=== PATIENT | male | born 1965 | race Caucasian/White ===

== ENCOUNTER → 2018-05-29 | Outpatient (CLI) | payer OTHER ==
[~2018-05-29] MED LIST: MOBIC15 MG PO; NORVASC5 MG PO; OMEPRAZOLE20 M2 PO
--- NOTE | ~2018-05-29 | PAINCON ---
[address] [address] PAIN MANAGEMENT CONSULTATION Name: EDGARDO MARTINEZ [id number] Admission: 05/29/18 Attend Phys: Jimmie Rodriguez MD Discharge: Date of : 63 Report #: [id number] THIS REPORT FOR: //name// CC: Pedro Rodriguez DATE OF SERVICE: 05/29/2018 PRIMARY CARE PHYSICIAN: Pedro Saab MD CHIEF COMPLAINT: Low back pain in the L5-S1 area. HISTORY OF PRESENT ILLNESS: The patient is a 53-year-old gentleman who has been referred to the pain clinic for evaluation. The patient states that he has a history of spinal stenosis. He is having pain in the L5-S1 area. Notes that it radiates down into his left leg. Occasionally, involves the right leg. He feels as though he has a bone spur because of the sciatic irritation. He has undergone physical therapy. Notes that his pain worsened about 2017. He has tried meloxicam [id number] medications and has used OxyContin. Notes that he has had some pain in his right knee as well. He is quite active. Describes the pain radiating down into his left leg as causing numbness, sharp, tingling sensation into his left foot. Notes that the pain is improved when he is lying down or sleeping. Denies any bowel or bladder dysfunction. Describes it as steady, burning, shooting, aching and sharp. Rates it as a 5-7/10. He has been using meloxicam and feels that this medication does offer some benefit. ALLERGIES: No known drug allergies. CURRENT MEDICATIONS: Norvasc 5 mg, meloxicam 15 mg, and omeprazole 20 mg. PAST MEDICAL HISTORY: Sleep apnea, lumbar radiculopathy, degenerative disk disease, hypertension, anxiety, hypercholesterolemia, hypertriglyceridemia, and ulcers. PAST SURGICAL HISTORY: The patient has not had surgery. 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 He is working at this juncture. REVIEW OF SYSTEMS: Generally good health, fatigue and weakness, wears glasses, history of peptic ulcer, joint pain, muscle cramps, back pain, difficulty walking, numbness and tingling sensation, insomnia, somewhat. LABORATORY DATA: MRI of the lumbar spine dated 05/07/2018, L3-L4, mild annular bulge with small posterior disk protrusion. Mild facet arthrosis. L4-L[place] [address] PAIN MANAGEMENT CONSULTATION Name: EDGARDO MARTINEZ Room: [facility]#: [id number] Admission: 05/29/18 Attend Phys: Jimmie Rodriguez MD Discharge: Date of : 63 Report #: [id number] annular bulge with mild facet arthrosis. L5-S1 mild disk osteophyte bulge and mild foraminal stenosis. PAIN CLINIC ASSESSMENT/PQRS: 1. The patient is not being treated for osteoarthritis or rheumatoid arthritis. 2. Height 6 feet 2 inches, weight 216 pounds, BMI is 27.8. 3. Vital signs: Blood pressure 142/96, heart rate 78, respiratory rate 16, room air saturation 97%, temperature 98.0. 4. Pain intensity 5-6/10. 5. Fall risk. The patient has not fallen in the last 3 months. 6. Blood thinner. The patient is not on a blood thinning medication. 7. Hypertension. The patient is being treated for hypertension. 8. Blood thinner. The patient is not on a blood thinning medication. 9. Opioids greater than 6 weeks. The patient is not on opioid regimen. 10. Risk assessment tool, low for opioid use. 11. Functional assessment tool . 12. Recreational drug use. The patient denies use of recreational drugs. 13. Tobacco: The patient denies use of tobacco. 14. Alcohol: The patient denies frequent use of alcoholic beverages. PHYSICAL EXAMINATION: GENERAL: The patient is a well-developed, well-nourished white male. Appears his stated age. He is alert and oriented x 3. His affect is appropriate. Speech is fluent. HEENT: Normocephalic, atraumatic. Extraocular eye muscles intact. The patient is wearing glasses. NECK: Without adenopathy or JVD. Upper extremity muscle strength is judged to be 5/5 for the major muscle groups in the upper extremity. HEART: Regular rate. S1, S2. ABDOMEN: Nontender. Bowel sounds present. EXTREMITIES: Lower extremity muscle strength is judged to be 5-/5 for the major muscle groups in the lower extremity. Deep tendon reflexes are +1 at the knees bilaterally. It is difficult to appreciate at the ankles. Anterior, posterior spring tests are negative. Zachary sign is negative. Straight leg raise, left leg is positive. Forward bending cause some increased pain in the low back area and into the posterior left leg. IMPRESSION: Left sciatic nerve irritation, L5-S1. RECOMMENDATIONS: We discussed treatment options with the patient. A model was used to indicate the area of probable pathology. The patient's MRI was reviewed with him in great detail. He states that he understands. He will return to the pain clinic at which time he will then undergo an epidural steroid injection. The possible complications, which could include but are not limited to infection, worsening pain, no improvement in pain, bleeding, headache, nerve damage were discussed. He will undergo an epidural steroid injection to help [facility] [address] [place] [address] PAIN MANAGEMENT CONSULTATION Name: EDGARDO MARTINEZ Dominique Room: [facility]#: [id number] Admission: 05/29/18 Attend Phys: Jimmie Rodriguez MD Discharge: Date of : 63 Report #: [id number] decrease the nerve root irritation in the L5-S1 dermatomal distribution. We would like to thank you for letting us participate in his care. We hope he continues to improve. By: [id number]. Terry Rodriguez MD /HO
== END ==
LOC: M.PC 12:50
DX: G57.02 Lesion of sciatic nerve, left lower limb (principal)

== ENCOUNTER → 2018-06-07 | Outpatient (CLI) | payer OTHER ==
--- NOTE | ~2018-06-07 | PAINCON ---
[address] [address] PAIN MANAGEMENT CONSULTATION Name: MICHELLEEDGARDO Dominique Room: [facility]#: [id number] Admission: 06/07/18 Attend Phys: Jimmie Rodriguez MD Discharge: Date of : 63 Report #: [id number] THIS REPORT FOR: //name// CC: Pedro Rodriguez DATE OF SERVICE: 06/07/2018 CHIEF COMPLAINT: Here for an epidural steroid injection. HISTORY: The patient is a 53-year-old gentleman who has been seen in the pain clinic because of pain involving his low back. He is experiencing pain that is radiating down the L5-S1 level. He has had some pain and discomfort for a number of years. Rates his pain as a 6/10 today. Notes that the pain is constant with some numbness, tingling and pain that is radiating down into the right foot as well as the left leg. He has a history of spinal stenosis. He has returned for treatment. Continues to use meloxicam 15 mg daily. ALLERGIES: No known drug allergies. MEDICATIONS: Norvasc 5 mg, meloxicam 15 mg, and omeprazole 20 mg. PAIN CLINIC ASSESSMENT AND PQRS: 1. The patient is not being treated for osteoarthritis or rheumatoid arthritis. 2. Height 6 feet 2 inches, weight 212 pounds, BMI is 26. 3. Vital signs: Blood pressure 146/100, heart rate 71, respiratory rate 16, room air saturation 97%, and temperature 98.3. 4. Pain intensity 10. 5. Fall risk. The patient has not fallen in the last 3 months. 6. Hypertension. The patient is being treated for hypertension. 7. Blood thinner. The patient is not on a blood thinning medication. 8. Opioid greater than 6 weeks. The patient is not on an opioid regimen. 9. Risk assessment tool, low for opioid use. 10. Functional assessment tool of . 11. Recreational drug use. The patient denies use of recreational drugs. 12. Tobacco: The patient denies use of tobacco. 13. Alcohol: The patient denies frequent use of alcoholic beverages. PHYSICAL EXAMINATION: GENERAL: The patient is a well-developed, well-nourished white male. Appears his stated age. He is alert and oriented x 3. His affect is appropriate. Speech is fluent. HEENT: Normocephalic, atraumatic. Extraocular eye muscles intact. Sclerae nonicteric. NECK: Without adenopathy or JVD. Upper extremity muscle strength is judged to be 5/5 for the major muscle groups in [place] [address] PAIN MANAGEMENT CONSULTATION Name: MICHELLEEDGARDO T Room: [facility]#: [id number] Admission: 06/07/18 Attend Phys: Jimmie Rodriguez MD Discharge: Date of : 63 Report #: [id number] HEART: Regular rate. S1, S2. ABDOMEN: Nontender. Bowel sounds present. EXTREMITIES: Lower extremity muscle strength judged to be 5-/5 for the major muscle groups in the lower extremity. Deep tendon reflexes +2 at the knees bilaterally. The patient has positive straight leg raise on the left. Forward bending caused increased pain in low back area with pain radiating down to the left leg. IMPRESSION: 1. Left sciatic nerve root irritation. 2. Hypertension. 3. Sleep apnea. 4. Anxiety. 5. Hypercholesterolemia. 6. Hypertriglyceridemia. 7. History of ulcers. RECOMMENDATIONS: We discussed treatment options with the patient. Risks and benefits of an epidural steroid injection were again discussed. Possible complications of the procedure, which could include but are not limited to infection, worsening pain, no improvement in pain, nerve damage, spinal headache, trauma to the spinal cord were discussed. The patient elects to proceed. PROCEDURE NOTE: The patient was taken to the procedure area. He was assisted in getting on the examination table. His back was sterilely prepped with a Betadine solution at the L5-S1 area. The L5-S1 area was visualized using anterior, posterior as well as lateral viewing with fluoroscopy. The left paramedian approach was used. A 25-gauge needle was then advanced to the area. A 0.25% bupivacaine was used to anesthetize it. A 17-gauge Tuohy at the L5-S1 area using the left paramedian approach was undertaken. Aspiration was negative. A total of 80 mg Depo-Medrol, 40 mg triamcinolone and 2 mL of 0.25% bupivacaine was injected. The patient tolerated the procedure well. A total of 13 seconds fluoro time was used. The patient remained in the pain clinic for an appropriate amount of time. He will follow up in the future as needed. We would like to thank you for letting us participate in his care. We hope he continues to improve. By: [id number]. Terry Rodriguez MD /chip
== END | disposition home or self-care (01) ==
LOC: M.PC 00:44
DX: M54.16 Radiculopathy, lumbar region (principal); G89.29 Other chronic pain; I10 Essential (primary) hypertension; G47.33 Obstructive sleep apnea (adult) (pediatric); F41.9 Anxiety disorder, unspecified; E78.00 Pure hypercholesterolemia, unspecified; Z87.19 Personal history of other diseases of the digestive system; E78.1 Pure hyperglyceridemia; Z79.899 Other long term (current) drug therapy; Z98.890 Other specified postprocedural states

== ENCOUNTER 2018-08-31 19:46 | Emergency (ER) | payer OTHER ==
[~2018-08-31] VITALS: Ht 190.5 cm; Wt 93.0 kg
[2018-08-31 20:11] LABS: ABSOLUTE BASOPHILS 0.1 thou/uL (0.0-0.2); ABSOLUTE MONOCYTES 0.6 thou/uL (0.0-1.2); ABSOLUTE NEUTROPHILS 3.5 thou/uL (1.6-8.1); BASOPHILS 0.9 %; EOSINOPHILS 0.5 %; HEMOGLOBIN 15.9 gm/dL (14.0-18.0); MCH 33.4 pg (26.0-34.0); MCHC 34.5 g/dL (28.0-37.0); MCV 96.8 fL (80.0-100.0); MONOCYTES 7.8 %; MPV 6.2 fl. (7.2-11.1); NUCLEATED RBCS 0 /100WBC; PLATELET COUNT* 250 thou/uL (150-400); POLYS 48.8 %; RBC 4.76 mil/uL (4.50-6.00); RDW-CV 14.1 % (10.5-14.5); WBC 7.2 thou/uL (4.0-11.0)
[2018-08-31 20:18] LABS: ANION GAP 11 mmol/L (7-16); BUN 9 mg/dL (7-18); CALCIUM 9.7 mg/dL (8.5-10.1); CHLORIDE 108 mmol/L (98-107); CO2 26 mmol/L (21-32); CREATININE 1.1 mg/dL (0.6-1.3); GLUCOSE 117 mg/dL (70-99); POTASSIUM 4.1 mmol/L (3.5-5.1); SODIUM 145 mmol/L (136-145)
[2018-08-31 20:20] LABS: PROTIME 9.8 Seconds (9.20-11.50)
[2018-08-31 20:33] LABS: ALKALINE PHOSPHATASE 97 U/L (46-116); CK-MB MASS 1.5 ng/mL (<0.5-3.6); LIPASE 166 U/L (73-393); MAGNESIUM 2.1 mg/dL (1.8-2.4); NT-PRO BRAIN NAT PEPTIDE 39 pg/mL (<300); SGOT 100 U/L (15-37); SGPT 83 U/L (30-65); TOTAL BILIRUBIN 0.7 mg/dL (<0.1-1.0); TOTAL PROTEIN 7.5 g/dL (6.4-8.2); TROPONIN-I LEVEL <0.06 ng/mL (<0.06)
[2018-08-31 20:49] VITALS: BP 140/106
--- NOTE | 2018-09-03 14:29 | EKG ---
[place] [address] ELECTROCARDIOGRAM REPORT Name: EDGARDO MARTINEZ [facility] [id number] Admission: 08/31/18 Attend Phys: Discharge: 08/31/18 Date of : 63 Report #: [id number] THIS REPORT FOR: //name// [place] ED Test Date: 2018-08-31 Test Time: 19:52:31 Pat Name: EDGARDO MARTINEZ Department: Room: Gender: M [employer]illing Flu[employer] Specialist: [facility] : 1965 Requested By: Bolivar Villagran Order Number: [id number] MD: Abelino Casanova Measurements Intervals [place] Rate: 90 P: 32 MA: 170 QRS: 37 QRSD: 106 T: 47 QT: 376 QTc: 460 Interpretive Statements Sinus rhythm RSR' in V1 or V2, right VCD or RVH No previous ECG available for comparison Electronically Signed On 09-03-2018 14:29:37 CDT by Abelino Casanova [email or web address] <ELECTRONICALLY SIGNED> By: Abelino Casanova MD, [facility] 09/03/18 1429 51 51 Abelino Casanova MD, FACC /EPI
== END 2018-08-31 20:50 | disposition home or self-care (01) ==
LOC: M.ERS 19:46
PROVIDERS: Family Medicine
DX: R07.89 Other chest pain (principal); F10.129 Alcohol abuse with intoxication, unspecified; Y90.8 Blood alcohol level of 240 mg/100 ml or more; R55 Syncope and collapse

== ENCOUNTER → 2019-05-24 | Outpatient (CLI) | payer OTHER | LOC: M.ULTRA 16:00 | DX: M79.661 Pain in right lower leg (principal) ==

== ENCOUNTER → 2020-03-31 | Outpatient (CLI) | payer OTHER ==
[~2020-03-31] MED LIST changes: +ALPRAZOLAM XR3 MG PO; +ASA81BEC PO; +HYDROCODON-ACE1 EAC7 PO; +PREVACID30 MG PO; +ROSUVASTATIN CA40 MG PO
--- NOTE | 2020-03-31 17:32 | CARDNUC ---
[place] [address] CARDIAC NUCLEAR IMAGING REPORT Name: EDGARDO MARTINEZ NOHEMI Room: [facility]#: [id number] Admission: 03/31/20 Attend Phys: Mayra Schmidt, Discharge: Date of : 63 Date of Service: 03/31/20 1731 Report #: [id number] THIS REPORT FOR: cc: Pedro Saab MD, Anthony MD Liston, Michael J. MD [facility] ~ APPROVED REPORT Study performed: 03/31/2020 11:57:49 Exam: Nuclear Stress Test Indication: Chest pain, elevated calcium score, HTN. Patient Location: Out-Patient Stress Tech: Brenda Giles Stress Nurse: Taniya Wagner Tech:LITO Gibbons Ht: 6 ft 2 in Wt: 185 lbs BSA: 2.10 m2 BMI: 23.75 Medical History Medical History: Chest pain, elevated calcium score, GERD, ESTEFANI, HX syncopal episode, HTN, HLD, DJD bilateral knees, Right knee orthoscopic procedure. Medications: Amlodipine, Rosuvastatin, ASA 81 Mg. Allergies: No known drug allergies Cardiac Risk Factors: Age, HTN, Hyperlipidemia, high calcium score. Previous Cardiac Procedures: None Pretest Chest Pain Characteristics: No chest pain Exercise History: Physically active Physical Disabilities: None Meds Held (24 hrs): None Stress Test Details Stress Test: Exercise stress testing was performed using a Oscar protocol. HR Resting HR: 114 bpm Max Heart Rate (APMHR): 165 bpm Max HR Achieved: 174 bpm Target HR (85% APMHR): 140 bpm % of APMHR: 105 Recovery HR: 126 [place] [address] CARDIAC NUCLEAR IMAGING REPORT Name: EDGARDO MARTINEZ Room: [facility]#: [id number] Admission: 03/31/20 Attend Phys: Mayra Schmidt, Discharge: Date of : 63 Date of Service: 03/31/20 1731 Report #: [id number] Resting BP: 128/97 mmHg Max BP: 171/91 mmHg ECG Resting ECG: Sinus Tachycardia Stress ECG: Sinus Tachycardia ST Change: None Arrhythmia: None Recovery ECG: Sinus Tachycardia Recovery ST Change: None Recovery Arrhythmia: None Clinical Reason for Termination: Completed protocol, Maximal effort, Fatigue. Stress Symptoms: Dyspnea, Fatigue. Exercise duration: 8 min 54 sec Exercise capacity: 10.16 METs Overall Exercise Capacity for Age: Normal The patient tolerated standard wrist protocol exercise without significant cardiac symptoms. Nurse Comments A 54 year old male presented for a treadmill nuclear stress test r/t elevated calcium score, HTN. Treadmill tolerated through stage 3, exercise capacity - normal. Recovery unremarkable. Patient was stable and stated he felt good when escorted to Nuclear Medicine for imaging. Stress ECG Conclusion The baseline twelve-lead EKG shows sinus tachycardia without significant ST segment or T wave abnormality. EKGs obtained during and post exercise show sinus tachycardia with no significant ST segment or T wave changes when compared to baseline. There were no stress-induced arrhythmias. NM EXAM: Myocardial Perfusion REST/STRESS Imaging Protocol: Rest Tc-99m/Stress Tc-99m 1 day Resting Data Rest SPECT myocardial perfusion imaging was performed in supine position 30 minutes following the intravenous injection of 10.3 mCi of Tc-99m Sestamibi. Time of rest injection: 1015 Date: 03/31/2020 The images were gated to evaluate regional wall [place] [address] CARDIAC NUCLEAR IMAGING REPORT Name: EDGARDO MARTINEZ Room: [facility]#: [id number] Admission: 03/31/20 Attend Phys: Mayra Schmidt, Discharge: Date of : 63 Date of Service: 03/31/20 1731 Report #: [id number] left ventricular ejection fraction. Administration Route: IV Administration Site: Right Hand Exercise Stress At peak stress, the patient was injected intravenously with 31.2mCi of Tc-99m Sestamibi. Time of stress injection: 1215 Date: 03/31/2020 Administration Route: IV Administration Site: Right Hand Gated Stress SPECT was performed 30 minutes after stress injection. The images were gated to evaluate regional wall motion and calculate left ventricular ejection fraction. Prone imaging was performed. Study Quality Study: Good Artifact: Mild Diaphragmatic artifact Study Data At rest, the left ventricular ejection fraction was 67%.. Post stress, the left ventricular ejection was 65%.. TID = 0.89. Perfusion Perfusion studies obtained in the supine position at rest and post exercise stress show mild photopenia of the inferior wall that resolves completely with post-rest prone imaging suggesting diaphragmatic attenuation artifact. Post-rest prone imaging shows uniform uptake of the radioisotope throughout the myocardium. There were no defects to suggest infarct or ischemia. Wall Motion Global LV systolic function is normal. There is a septal wall motion abnormality of uncertain significance. Nuclear Conclusion ECG Findings: negative for ischemia Clinical Findings: negative for ischemia Nuclear Findings: negative for ischemia Exercise Capacity: Fair Left Ventricular Function: normal Risk Study: low Perfusion images show no defect to suggest infarct or ischemia. Global LV systolic function is normal on gated studies. [place] [address] CARDIAC NUCLEAR IMAGING REPORT Name: EDGARDO MARTINEZ Room: [facility]#: [id number] Admission: 03/31/20 Attend Phys: Mayra Schmidt, Discharge: Date of : 63 Date of Service: 03/31/20 1731 Report #: [id number] low risk study. <Conclusion> The baseline twelve-lead EKG shows sinus tachycardia without significant ST segment or T wave abnormality. EKGs obtained during and post exercise show sinus tachycardia with no significant ST segment or T wave changes when compared to baseline. There were no stress-induced arrhythmias. <ELECTRONICALLY SIGNED> By: Juan C Mckay MD, [facility] 03/31/20 173 173 173 Juan C Mckay MD, FACC /INF
== END ==
LOC: M.NUC 03-18 10:06 → M.CRD 09:00 → M.NUC 09:45
PROVIDERS: ATTEND Internal Medicine
DX: R93.1 Abnormal findings on diagnostic imaging of heart and coronary circulation (principal); I10 Essential (primary) hypertension

== ENCOUNTER → 2020-07-23 | Outpatient (CLI) | payer OTHER | LOC: M.LAB 05:20 | PROVIDERS: ATTEND Anesthesiology | DX: E87.6 Hypokalemia (principal) ==

== ENCOUNTER → 2020-11-19 | Outpatient (CLI) | payer OTHER ==
[~2020-11-19] MED LIST changes: +DILTIAZEM ER180 M2 PO; +OMEPRAZOLE40 MG PO; +REGLAN 10 MG TA10 MG PO
== END ==
LOC: M.PC 11:40
PROVIDERS: ATTEND Anesthesiology Pain Medicine
DX: M54.16 Radiculopathy, lumbar region (principal); I10 Essential (primary) hypertension; G47.30 Sleep apnea, unspecified; F41.9 Anxiety disorder, unspecified; M19.90 Unspecified osteoarthritis, unspecified site; E78.00 Pure hypercholesterolemia, unspecified; E78.1 Pure hyperglyceridemia

== ENCOUNTER → 2020-12-01 | Outpatient (CLI) | payer OTHER | END | disposition home or self-care (01) | LOC: M.PC 09:23 | PROVIDERS: ATTEND Anesthesiology Pain Medicine | DX: M54.16 Radiculopathy, lumbar region (principal); G89.29 Other chronic pain; I10 Essential (primary) hypertension; G47.30 Sleep apnea, unspecified; F41.9 Anxiety disorder, unspecified; K21.9 Gastro-esophageal reflux disease without esophagitis; M19.90 Unspecified osteoarthritis, unspecified site; E78.00 Pure hypercholesterolemia, unspecified; E78.1 Pure hyperglyceridemia; Z98.890 Other specified postprocedural states; Z79.899 Other long term (current) drug therapy; Z79.82 Long term (current) use of aspirin ==

== ENCOUNTER 2021-04-26 18:26 | Inpatient (IN) | payer OTHER ==
[~2021-04-26] VITALS: Ht 188 cm; Wt 81.6 kg
--- NOTE | ~2021-04-26 | PROC ---
[address] [address] PROCEDURE REPORT Name: EDGARDO MARTINEZ NOHEMI Room: [address] [place] .R.#: [id number] Admission: 04/26/21 Attend Phys: Mark Pak MD Discharge: Date of : 63 Report #: [id number] THIS REPORT FOR: cc: Pedro Saab MD, Anthony MD [facility],Medical Records Staff ~ For GI report, please see the Provation report in Perceptive 7 content. By: 0849Medical Records Staff JIMENA /OLY
[2021-04-26 19:18] VITALS: BP 175/127
[2021-04-26 20:06] LABS: AMP/METHAMP Negative (Negative); BARBITURATES Negative (Negative); BENZODIAZEPINES Negative (Negative); COCAINE Negative (Negative); METHADONE Negative (Negative); OPIATES Negative (Negative); PCP Negative (Negative); THC Negative (Negative)
[2021-04-26 20:18] LABS: ABSOLUTE BASOPHILS 0.1 thou/uL (0.0-0.2); ABSOLUTE LYMPHOCYTES 0.9 thou/uL (0.8-5.3); ABSOLUTE MONOCYTES 0.4 thou/uL (0.0-1.2); ABSOLUTE NEUTROPHILS 6.1 thou/uL (1.6-8.1); BASOPHILS 0.8 %; EOSINOPHILS 0.1 %; HEMATOCRIT 37.9 % (42.0-52.0); HEMOGLOBIN 13.3 gm/dL (14.0-18.0); LYMPHOCYTES 12.4 %; MCH 37.2 pg (26.0-34.0); MCV 106.2 fL (80.0-100.0); MONOCYTES 4.8 %; MPV 5.7 fl. (7.2-11.1); NUCLEATED RBCS 0 /100WBC; PLATELET COUNT* 239 thou/uL (150-400); POLYS 81.9 %; RBC 3.57 mil/uL (4.50-6.00); RDW-CV 14.9 % (10.5-14.5); WBC 7.5 thou/uL (4.0-11.0)
[2021-04-26 20:25] LABS: CALCIUM 8.7 mg/dL (8.5-10.1); POTASSIUM 3.9 mmol/L (3.5-5.1)
[2021-04-26 20:30] LABS: ALBUMIN 3.5 g/dL (3.4-5.0); MAGNESIUM 1.9 mg/dL (1.8-2.4); TOTAL BILIRUBIN 0.8 mg/dL (<0.1-1.0); TOTAL PROTEIN 6.7 g/dL (6.4-8.2)
[2021-04-26 23:58] VITALS: BP 157/95
[2021-04-27 00:20] VITALS: BP 150/99
[2021-04-27 04:00] VITALS: BP 154/98
[2021-04-27 08:00] VITALS: BP 156/98
--- NOTE | 2021-04-27 11:34 | EKG ---
[place] [address] ELECTROCARDIOGRAM REPORT Name: EDGARDO MARTINEZ Room: [address] ADM [place] ..#: [id number] Admission: 04/26/21 Attend Phys: Mark Pak, Discharge: Date of : 63 Date of Service: 04/26/212046 Report #: [id number] THIS REPORT FOR: //name// [facility] ED Test Date: 2021-04-26 Test Time: 20:47:29 Pat Name: EDGARDO MARTINEZ Department: Room: [facility] Gender: M Health Specialist: [place] : 1965 Requested By: Steph Michelle Order Number: [id number] MD: Luis Argueta Measurements Intervals [place] Rate: 73 P: -1 UT: 57 QRS: 26 QRSD: 101 T: 29 QT: 487 QTc: 537 Interpretive Statements Sinus rhythm Short UT interval Prolonged QT interval Baseline wander in lead(s) V6 Compared to ECG 08/31/2018 19:52:31 Short UT interval now present Prolonged QT interval now present Electronically Signed On 04-27-2021 11:34:12 HOME OFFICE REPRESENTATIVE by Luis Argueta [email or web address] <ELECTRONICALLY SIGNED> By: Luis Argueta MD, FACC 04/27/21 1134 46 46 Luis Argueta MD, FAC /EPI
[2021-04-27 12:36] LABS: CHOLESTEROL 257 mg/dL (<200); HDL CHOLESTEROL 51 mg/dL (>40); LDL CHOLESTEROL 180 mg/dL (<100); TRIGLYCERIDE 130 mg/dL (<150); VLDL 26 mg/dL (<40)
[2021-04-27 12:38] LABS: SERUM ASSESSMENT Clear
[2021-04-27 16:00] VITALS: BP 153/99
[2021-04-27 20:02] VITALS: BP 148/97
[2021-04-28] VITALS: BP 153/102
[2021-04-28 04:12] LABS: CALCIUM 8.5 mg/dL (8.5-10.1); CREATININE 0.8 mg/dL (0.6-1.3); POTASSIUM 4.3 mmol/L (3.5-5.1)
[2021-04-28 04:39] LABS: ABSOLUTE MONOCYTES 0.4 thou/uL (0.0-1.2); ABSOLUTE NEUTROPHILS 7.4 thou/uL (1.6-8.1); BASOPHILS 0.2 %; EOSINOPHILS 0.1 %; HEMATOCRIT 40.2 % (42.0-52.0); HEMOGLOBIN 13.9 gm/dL (14.0-18.0); LYMPHOCYTES 10.9 %; MCH 37.4 pg (26.0-34.0); MCHC 34.4 g/dL (28.0-37.0); MCV 108.5 fL (80.0-100.0); MONOCYTES 4.8 %; MPV 5.9 fl. (7.2-11.1); NUCLEATED RBCS 0 /100WBC; PLATELET COUNT* 180 thou/uL (150-400); RBC 3.71 mil/uL (4.50-6.00); WBC 8.8 thou/uL (4.0-11.0)
[2021-04-28 08:04] VITALS: BP 144/99
[2021-04-28 16:00] VITALS: BP 131/92
[2021-04-28 19:38] VITALS: BP 145/105
[2021-04-29] VITALS: BP 149/91
[2021-04-29 04:34] LABS: ABSOLUTE LYMPHOCYTES 0.6 thou/uL (0.8-5.3); ABSOLUTE MONOCYTES 0.5 thou/uL (0.0-1.2); ABSOLUTE NEUTROPHILS 6.3 thou/uL (1.6-8.1); BASOPHILS 0.3 %; EOSINOPHILS 0.4 %; HEMATOCRIT 36.9 % (42.0-52.0); HEMOGLOBIN 12.7 gm/dL (14.0-18.0); LYMPHOCYTES 8.7 %; MCH 37.4 pg (26.0-34.0); MCHC 34.5 g/dL (28.0-37.0); MCV 108.5 fL (80.0-100.0); MONOCYTES 6.1 %; MPV 6.5 fl. (7.2-11.1); NUCLEATED RBCS 0 /100WBC; PLATELET COUNT* 139 thou/uL (150-400); POLYS 84.5 %; RDW-CV 14.8 % (10.5-14.5); WBC 7.4 thou/uL (4.0-11.0)
[2021-04-29 05:19] LABS: ALBUMIN 2.7 g/dL (3.4-5.0); CALCIUM 8.3 mg/dL (8.5-10.1); CREATININE 0.7 mg/dL (0.6-1.3); POTASSIUM 3.7 mmol/L (3.5-5.1); TOTAL BILIRUBIN 1.1 mg/dL (<0.1-1.0); TOTAL PROTEIN 6.3 g/dL (6.4-8.2)
[2021-04-29 08:00] VITALS: BP 125/94
[2021-04-29 15:39] VITALS: BP 150/100
[2021-04-29 20:00] VITALS: BP 138/95
[2021-04-30 05:34] LABS: ABSOLUTE LYMPHOCYTES 0.7 thou/uL (0.8-5.3); ABSOLUTE MONOCYTES 0.4 thou/uL (0.0-1.2); ABSOLUTE NEUTROPHILS 3.2 thou/uL (1.6-8.1); BASOPHILS 0.4 %; EOSINOPHILS 1.1 %; HEMATOCRIT 42.2 % (42.0-52.0); HEMOGLOBIN 14.3 gm/dL (14.0-18.0); LYMPHOCYTES 16.8 %; MCH 36.3 pg (26.0-34.0); MCHC 33.9 g/dL (28.0-37.0); MONOCYTES 8.4 %; MPV 6.5 fl. (7.2-11.1); NUCLEATED RBCS 0 /100WBC; PLATELET COUNT* 119 thou/uL (150-400); POLYS 73.3 %; RBC 3.95 mil/uL (4.50-6.00); RDW-CV 15.1 % (10.5-14.5); WBC 4.4 thou/uL (4.0-11.0)
[2021-04-30 05:58] LABS: ALBUMIN 2.7 g/dL (3.4-5.0); CALCIUM 8.6 mg/dL (8.5-10.1); CREATININE 0.7 mg/dL (0.6-1.3); POTASSIUM 3.2 mmol/L (3.5-5.1); TOTAL BILIRUBIN 0.9 mg/dL (<0.1-1.0); TOTAL PROTEIN 6.1 g/dL (6.4-8.2)
[2021-04-30 08:00] VITALS: BP 132/102
[2021-04-30 08:28] LABS: CALCIUM 8.9 mg/dL (8.5-10.1); CREATININE 0.9 mg/dL (0.6-1.3); POTASSIUM 3.5 mmol/L (3.5-5.1)
[2021-04-30 08:31] LABS: MAGNESIUM 1.8 mg/dL (1.8-2.4); PHOSPHORUS* 2.2 mg/dL (2.5-4.9)
[2021-04-30 12:11] VITALS: BP 117/88
[2021-04-30 12:58] VITALS: BP 117/88
== END 2021-04-30 13:52 | disposition home or self-care (01) | DRG 439 ==
LOC: M.ERS 18:26 → M.TBA-ER 21:58 → M.2W 21:58
PROVIDERS: Emergency Medicine; ADMIT Internal Medicine; ATTEND Internal Medicine
PROC: 0D798ZZ Dilation of Duodenum, Via Natural or Artificial Opening Endoscopic (ICD-10-PCS; principal; 2021-04-28)
DX: K85.90 Acute pancreatitis without necrosis or infection, unspecified (principal); R65.10 Systemic inflammatory response syndrome (SIRS) of non-infectious origin without acute organ dysfunction; E44.1 Mild protein-calorie malnutrition; R13.10 Dysphagia, unspecified; Z20.822 Contact with and (suspected) exposure to COVID-19; E78.5 Hyperlipidemia, unspecified; E88.89 Other specified metabolic disorders; K21.9 Gastro-esophageal reflux disease without esophagitis; K76.0 Fatty (change of) liver, not elsewhere classified; K46.9 Unspecified abdominal hernia without obstruction or gangrene; K59.00 Constipation, unspecified; E78.1 Pure hyperglyceridemia; F41.9 Anxiety disorder, unspecified

== ENCOUNTER 2021-05-03 07:28 | Emergency (ER) | payer OTHER ==
[~2021-05-03] VITALS: Ht 188 cm; Wt 81.7 kg
[2021-05-03] MEDS ORDERED: KLOR-CON 1010 MEQ PO (07:43)
[2021-05-03] MEDS ORDERED: HYDROCODON-ACE1 EAC7 PO (08:17)
[2021-05-03] MEDS ORDERED: FLEXERIL PO (08:58)
[2021-05-03 09:03] VITALS: BP 135/95
== END 2021-05-03 09:03 | disposition home or self-care (01) ==
LOC: M.ERS 07:28
DX: S20.211A Contusion of right front wall of thorax, initial encounter (principal); K21.9 Gastro-esophageal reflux disease without esophagitis; I10 Essential (primary) hypertension; F41.9 Anxiety disorder, unspecified; E78.00 Pure hypercholesterolemia, unspecified; Z79.899 Other long term (current) drug therapy; W06.XXXA Fall from bed, initial encounter; Y93.89 Activity, other specified; Y92.89 Other specified places as the place of occurrence of the external cause; Y99.8 Other external cause status